=== PATIENT | male | born 1970 | race Caucasian/White ===

== ENCOUNTER 2020-02-19 17:03 | Emergency (ER) | payer OTHER ==
[2020-02-19 17:30] VITALS: BP 121/90; PULSE 80; TEMP 98.1; BMI 28.2
--- NOTE | 2020-02-19 17:59 | PDOC ---
History of Present Illness - General Chief Complaint: Pain, Acute Stated Complaint: BILATERAL LOWER ANKLE TIGHTNESS Time Seen by Provider: 02/19/20 17:31 History Source: Patient Exam Limitations: No Limitations - History of Present Illness Initial Comments: 02/19/20 17:52 49 yo malle h/o liver donation , subsequent post op PE and hernia, requiring recent hernia repair. here today c/o bilat ankle swelling. states were swollen day prior. denies cp or sob. now resolved. not currently on blood thinner, was on xarelto for 3 mo post op only. no f/c no other complaints. no injuries. Past History - Medical History Allergies/Adverse Reactions: Allergies Allergy/AdvReac Type Severity Reaction Status Date / Time No Known Allergies Allergy Verified 02/19/20 17:04 Home Medications: Ambulatory Orders NK [No Known Home Medication] 02/19/20 CVA: No (PE) COPD: No - Surgical History Abdominal Surgery: Yes (LIVER DONOR, HERNIA) - Psycho-Social/Smoking History Smoking History: Never smoked - Substance Abuse Hx (Audit-C & DAST Scrn) How often the patient has a drink containing alcohol: Never Score: In Men: 4 or > Positive; In Women: 3 or > Positive: 0 Screen Result (Pos requires Nsg. Audit-10AR): Negative In the last yr the pt used illegal drug/Rx for NonMed reason: No Score: Yes response is considered Positive: 0 Screen Result (Positive result requires Nsg. DAST-10): Negative Review of Systems - Review of Systems Constitutional: No: Chills, Diaphoresis Respiratory: No: Orthopnea, Shortness of Breath Cardiac (ROS): No: Chest Pain, Edema Musculoskeletal: Yes: Joint Swelling Integumentary: No: Bruising, Erythema, Flushing, Lesions Neurological: No: Headache, Paresthesia All Other Systems: Reviewed and Negative *Physical Exam - Vital Signs Last Vital Signs Temp Pulse Resp BP Pulse Ox 98.1 F 80 16 121/90 100 02/19/20 17:03 02/19/20 17:03 02/19/20 17:03 02/19/20 17:03 02/19/20 17:03 - Physical Exam 02/19/20 17:54 awake alert lungs clear bilat heart rrr no mrg abd soft nt nd ext wwp. no appreciated edema. or calf tenderness. noted varicose veins. 2+ dp/ pt pulse. ED Treatment Course - RADIOLOGY Radiology Studies Ordered: Category Date Time Status DUPLEX VASCUL US-2LEGS [US] Stat Ultrasound 02/19/20 17:17 Ordered Medical Decision Making - Medical Decision Making 02/19/20 17:54 49 yo male with c/o bilat ankle swelling. h/o pe post op recent hernia repair, plan doppler r/o dvt. on my exam no appreciated swelling. Discharge - Discharge Information Problems reviewed: Yes Clinical Impression/Diagnosis: Ankle edema Condition: Improved Disposition: HOME - Admission No - Follow up/Referral Referrals: Jd Shah MD [Primary Care Provider] - - Patient Discharge Instructions Patient Printed Discharge Instructions: Edema (Alternative Therapy) Additional Instructions: your doppler was negative for an acute blood clot in your legs. you should follow up with your regular doctor, call to schedule. you can also wear compression stocking on your legs to help with swelling. elevated legs also. return immediately for shortness of breath chest pain or any concerns. - Post Discharge Activity
== END 2020-02-19 19:33 | disposition home or self-care (01) ==
LOC: FER 17:03
DX: R60.0 Localized edema (principal)
CPT/HCPCS: 93970-TC; 99284-25